=== PATIENT | male | born 1980 | race American Indian/Alaskan Native ===

== ENCOUNTER 2017-07-16 01:23 | Emergency (ER) | payer SELFPAY ==
[2017-07-16 01:39] VITALS: BP 115/76; PULSE 78; RESP 18; TEMP 98.1; O2SAT 99
[2017-07-16] MEDS ORDERED: cefTRIAXone (Rocephin) 250 mg Inj IM STA (01:40)
--- NOTE | 2017-07-16 01:49 | ED PDOC ---
Arrival/HPI - General Historian: Patient <Tami Armando Evonne - Last Filed: 07/16/17 01:46> <Jim Pham - Last Filed: 07/16/17 02:17> - General Chief Complaint: Male Genitourinary Time Seen by Provider: 07/16/17 01:40 - History of Present Illness Narrative History of Present Illness (Text): 07/16/17 01:47 36-year-old male presents today with concerns for chlamydia. Patient states that his girlfriend was just diagnosed with chlamydia and then 2 days ago the patient developed penile discharge. He is complaining of slight burning. He denies fevers or chills. Denies abdominal pain. No nausea or vomiting. No chest pain or shortness of breath. No other complaints (Tami Armando) Past Medical History - Provider Review Nursing Documentation Reviewed: Yes - Travel History Have you recently traveled outside [place] w/in the past 3 mons?: No - Tetanus Immunization Tetanus Immunization: Unknown - Psychiatric Hx Substance Use: No <Tami Armando - Last Filed: 07/16/17 01:46> Family/Social History - Physician Review Nursing Documentation Reviewed: Yes Family/Social History: Unknown Family HX Smoking Status: y Hx Alcohol Use: (mp) Hx Substance Use: No <Tami Armando - Last Filed: 07/16/17 01:46> Allergies/Home Meds <Tami Armando - Last Filed: 07/16/17 01:46> <Jim Pham - Last Filed: 07/16/17 02:17> Allergies/Adverse Reactions: Allergies No Known Allergies Allergy (Verified 07/16/17 01:39) Review of Systems - Review of Systems Constitutional: absent: Fatigue, Fevers Respiratory: absent: SOB, Cough Cardiovascular: absent: Chest Pain, Palpitations Gastrointestinal: absent: Abdominal Pain, Nausea, Vomiting Genitourinary Male: Dysuria, Other (penile discharge). absent: Frequency, Hematuria, Urinary Output Changes Musculoskeletal: absent: Arthralgias, Back Pain, Neck Pain Skin: absent: Rash, Pruritis Neurological: absent: Headache, Dizziness Psychiatric: absent: Anxiety, Depression <Tami Armando - Last Filed: 07/16/17 01:46> Physical Exam Vital Signs Reviewed: Yes Temperature: Afebrile Blood Pressure: Normal Pulse: Regular Respiratory Rate: Normal Appearance: Positive for: Well-Appearing, Non-Toxic, Comfortable Pain Distress: None Mental Status: Positive for: Alert and Oriented X 3 - Systems Exam Head: Present: Atraumatic Mouth: Present: Moist Mucous Membranes Respiratory/Chest: Present: Clear to Auscultation. No: Wheezes, Retracting, Rhonchi, Tachypneic Cardiovascular: Present: Regular Rate and Rhythm Abdomen: Present: Normal Bowel Sounds. No: Tenderness, Distention, Peritoneal Signs, Rebound, Guarding Genitourinary Male: Present: Normal External Genitalia, Circumcised Penis, Other (chaparoned by Edwin). No: Penile Discharge, Testicle Tenderness, Penile Swelling, Masses, Erythema, Testicle Swelling, Prostate Tenderness Back: Present: Normal Inspection Neurological: Present: GCS=15 Skin: Present: Warm, Dry, Normal Color. No: Rashes Psychiatric: Present: Alert, Oriented x 3 <Tami Armando - Last Filed: 07/16/17 01:46> Medical Decision Making <Tami Armando - Last Filed: 07/16/17 01:46> <Jim Pham - Last Filed: 07/16/17 02:17> ED Course and Treatment: 07/16/17 01:50 Patient is nontoxic well-appearing in no distress with stable vital signs Ceftriaxone 250 mg IM Zithromax 1 g p.o. given Gonorrhea and Chlamydia cultures are pending. Advised patient to refrain from sex for 10 days followup with the primary care physician within the next 2 days or return if symptoms worsen persist or if new symptoms develop. Impression: Urethritis Follow up primary care physician within the next 2 days Return if symptoms worsen persist or if new symptoms develop. (Tami Armando ) - Medication Orders Current Medication Orders: Discontinued Medications Azithromycin (Zithromax) 1,000 mg PO STAT STA PRN Reason: Protocol Stop: 07/16/17 01:41 Last Admin: 07/16/17 02:11 Dose: 1,000 mg Ceftriaxone Sodium (Rocephin) 250 mg IM STAT STA PRN Reason: Protocol Stop: 07/16/17 01:41 Last Admin: 07/16/17 02:11 Dose: 250 mg - PA / FIELD UNDERWRITER / Resident Statement MD/DO has reviewed & agrees with the documentation as recorded. <Jim Pham - Last Filed: 07/16/17 02:17> Disposition/Present on Arrival - Present on Arrival Any Indicators Present on Arrival: No History of DVT/PE: No History of Uncontrolled Diabetes: No Urinary Catheter: No History of Decub. Ulcer: No History Surgical Site Infection Following: None - Disposition Have Diagnosis and Disposition been Completed?: Yes Disposition Time: 01:46 Patient Plan: Discharge <Tami Armando - Last Filed: 07/16/17 01:46> <Jim Pham - Last Filed: 07/16/17 02:17> - Disposition Diagnosis: Penile discharge Disposition: HOME/ ROUTINE Condition: GOOD Discharge Instructions (ExitCare): Sexually Transmitted Diseases (ED), Safe Sex (ED) Additional Instructions: Follow-up with a primary care physician within the next 2 days Return if symptoms worsen or persist or if new concerning symptoms develop Referrals: Debora Poole MD [Staff Provider] - Follow up with primary Forms: [employer] (Faroese)
== END 2017-07-16 02:22 | disposition home or self-care (01) ==
LOC: ED 01:23
DX: R36.9 Urethral discharge, unspecified (principal)
CPT/HCPCS: 87491; 87591; 96372; 99283; J0696